=== PATIENT | male | born 1995 | race Caucasian/White ===

== ENCOUNTER 2017-01-09 19:37 | Emergency (ER) | payer SELFPAY ==
[2017-01-09] MEDS ORDERED: CEFTRIAXONE SODIUM 1 G VIAL ONE (20:40)
== END 2017-01-09 21:20 | disposition home or self-care (01) ==
LOC: ED 19:37
DX: L03.116 Cellulitis of left lower limb (principal); I10 Essential (primary) hypertension
CPT/HCPCS: 99283 ×2; 96372; J0696